=== PATIENT | male | born 1965 | race Caucasian/White ===

== ENCOUNTER 2017-01-11 20:38 | Inpatient (IN) | payer OTHER ==
[~2017-01-11] VITALS: Ht 177.8 cm; Wt 78.5 kg
--- NOTE | ~2017-01-11 | DS ---
PATIENT'S NAME: LEXIE AMBROSIO [facility] AGE: 51 Y [address] ROOM: [address] [address] LOCATION: [facility] [place] ADMIT DATE: 01/11/2017 Discharge Summary DISCHARGE DATE: 01/14/2017 FAMILY PHYSICIAN: Winston Troy MD ATTENDING PHYSICIAN: Raven Johnston DISCHARGE DIAGNOSES: 1. Sepsis. 2. Fever. CONSULTS DURING ADMISSION: Infectious Disease. PROCEDURE DURING ADMISSION: None. HOSPITAL COURSE: The patient was admitted for fever and sepsis and was started on broad-spectrum antibiotics. Infectious Disease was consulted and cultures were taken and are still pending. The patient was also given IV fluid hydration. Upon day of discharge, the patient had been afebrile for 24 hours and was tolerating diet and ambulating without difficulty. DISCHARGE CONDITION: Stable. DISPOSITION: Home. DISCHARGE MEDICATIONS: Please see list. DISCHARGE INSTRUCTIONS: We will contact the patient with results of cultures as they come. The patient is to return home with the minimal exertion along with Tylenol or Motrin as needed for fever and body aches and drink plenty of fluids. The patient is also to continue with doxycycline as directed. The patient is to follow up with Dr. Troy in approximately 1 week. Any concerns contact clinic prior. MD RODO AVILA/bennett /[id number] d: 01/18/17232 t: 02/02/173, DISCHARGE SUMMARY
--- NOTE | ~2017-01-11 | CON ---
PATIENT'S NAME: LEXIE MURPHY [facility] AGE: 51 Y [address] ROOM: [id number] [place], [place] [address] LOCATION: [facility] [place] ADMIT DATE: 01/11/2017 Consultation DISCHARGE DATE: FAMILY PHYSICIAN: Winston Troy MD ATTENDING PHYSICIAN: Raven Johnston DATE OF CONSULTATION: 01/12/2017 REASON FOR CONSULTATION: Acute febrile illness. HISTORY OF PRESENT ILLNESS: Mr. Murphy is a 51-year-old, male, who had started feeling poorly on Monday. Rest of the weekend, Monday and Monday he was sick with intermittent fevers, chills, malaise, myalgia; spent most of the day, Monday and Monday, in bed; decided to come in on Monday for evaluation. He was noted to be febrile without a definite source, so we admitted to the hospital. He prior to this has headache when his temperatures are all up, otherwise feels better when his temp is down. He has not had sore throat, has a little bit of cough now, not bring anything up. No chest pain. No nausea, vomiting, diarrhea, except for one episode of loose stool. No urine complaints. No specific joint complaints except for he does have pain in his mid back which he has sometimes when he has fever in the past. He lives at home with his and 3 children, as his oldest is back from college, none of them are ill. Apparently, his dog is vomiting however, and his told the nurse that the dog was sick. The patient did not know anything about that. Of note, the patient is training his dog on his [place]. They have about 3-1/2 acres [place]. They are also raising birds, [place] and pigeons, and he is working on building a coop and he does clean out the area that they are staying in now. He has not otherwise traveled anywhere. 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 PAST MEDICAL HISTORY: Significant for back pain and hypercholesterolemia. PAST SURGICAL HISTORY: He has had surgery on his back and herniorrhaphy. ALLERGIES: LISTED TO SULFA. MEDICATIONS: He is currently on, 1. Vancomycin. PATIENT'S NAME: LEXIE MURPHY [facility] AGE: 51 Y [address] ROOM: [id number] [place], [place] [address] LOCATION: [facility] [place] ADMIT DATE: 01/11/2017 Consultation DISCHARGE DATE: FAMILY PHYSICIAN: Winston Troy MD ATTENDING PHYSICIAN: Raven Johnston 2. Zosyn. 3. Doxycycline. SOCIAL HISTORY: He does not smoke. Does not drink. FAMILY HISTORY: Noncontributory. REVIEW OF SYSTEMS: All remaining review of systems is otherwise negative with pertinent positives and negatives in the HPI. PHYSICAL EXAMINATION: GENERAL: He does not look acutely ill now. He is awake, alert, oriented x3. No evidence of confusion. No neck stiffness. VITAL SIGNS: His T-max here has been 103, currently is 99.3, blood pressure 130/79, pulse 82, respirations 16. HEENT: Without icterus or thrush. NECK: Supple. LUNGS: Clear. HEART: Regular. ABDOMEN: Soft and nontender without organomegaly or tenderness. EXTREMITIES: Without cyanosis, clubbing, edema. JOINT: Without any active synovitis. SKIN: Without rash. LABORATORY AND X-RAY DATA: Creatinine is 0.9. Liver function tests are normal. His CRP is 15.9, white count 4.9, hemoglobin 12.9, platelet count 146 that is slightly down. He has 21% bands on differential last night, and only 5% lymphocytes. Sedimentation rate is 36. His respiratory pathogen screen was negative. Procalcitonin 0.67. Chest x-ray is clear. MRI of the back looked clear but he did have a little bit of fluid in the left chest and maybe some atelectasis versus infiltrate. Sinus scan showed what look like chronic sinus disease. ASSESSMENT/PLAN: Acute febrile illness with malaise, myalgias, headache when temps are up, some cough now but not overly significant. Etiology of this is uncertain. Nobody is ill at home, but the dog apparently is sick according to his . He has been training the dog and raising birds, building a chicken coop, and cleaning out the current living situation. Thus agree this psittacosis would be a possibility but so would Cryptococcus and histoplasmosis, so we will check for those. He has also been out training, so a tick exposure could be possible. There are reports of [place] spotted fever in [facility] this PATIENT'S NAME: DAILY, LEXIE Calle [facility] AGE: 51 Y [address] ROOM: [id number] [place], [place] [address] LOCATION: [facility] [place] ADMIT DATE: 01/11/2017 Consultation DISCHARGE DATE: FAMILY PHYSICIAN: Winston Troy MD ATTENDING PHYSICIAN: Raven Johnston year, so that is possibility, as would be ehrlichiosis especially if the dog is ill too, so we will check for those. We will stop the vancomycin and Zosyn. Continue the doxycycline. Put him on ceftriaxone 2 g IV daily in case this is a community-acquired pneumonia that has not really masked itself yet. We will consider repeating a chest x-ray. We will follow up these results and see how he does. Typically, if it is rickettsial illness within about 48 hours, he will see significant improvement. Please call with questions or as results come back and we can assist from a far. Thanks for asking me to see the patient. MD CAITLIN HERRERA/harleenl /[id number] d: 01/12/172017 t: 02/08/17 1833, CONSULTATION REPORT
--- NOTE | ~2017-01-11 | ER ---
PATIENT'S NAME: LEXIE AMBROSIO [facility] AGE: 51 Y [address] ROOM: [place] [address] [place] [facility] [place] DATE: 01/11/2017 ER/Outpatient Report DISCHARGE DATE: FAMILY PHYSICIAN: Winston Troy MD ATTENDING PHYSICIAN: Raven Johnston Admission date and time documented in the medical record. I saw the patient at 2100 hours. CHIEF COMPLAINT: Fever, shaking chills, rigors, generalized malaise, myalgias, and arthralgias. HISTORY OF PRESENT ILLNESS: This patient is a 51-year-old male, who has been sick for about 4 or 5 days, who has been in bed over the last 3 days, has intermittent fevers up to 103.3 at the highest. He has had the shaking rigors. When he takes Tylenol or ibuprofen, it brings fever down and pops right back up. Little lightheaded and dizzy, but no syncope or near syncope. No fall or trauma. Mild headache intermittently. No eyes, ears, nose, throat, neck, or spine pain. No chest pain, shortness of breath, or cough. No abdominal pain, nausea, or vomiting. One episode of diarrhea today. No blood in the stool. No urinary frequency, urgency, or dysuria. No joint or muscle swelling, redness, or pain. No skin eruptions or rash. No history of neuro changes, psych issues, or endocrine problems. HOME MEDICATIONS: See attached medication list. ALLERGIES: SULFA. SOCIAL HISTORY: Nonsmoker and nondrinker. SIGNIFICANT PAST MEDICAL HISTORY: Elevated cholesterol and chronic back pain. OPERATIONS: Back surgery and herniorrhaphy. REVIEW OF SYSTEMS: All systems reviewed by me are negative with the exception of those discussed in the history of present illness. PHYSICAL EXAMINATION: PATIENT'S NAME: LEXIE AMBROSIO [facility] AGE: 51 Y [address] ROOM: [place] [id number] [place] [facility] [place]: 01/11/2017 ER/Outpatient Report DISCHARGE DATE: FAMILY PHYSICIAN: Winston Troy MD ATTENDING PHYSICIAN: Raven Johnston VITAL SIGNS: Temperature 98.4 tympanic, pulse 91, respirations 14, O2 saturation on room air is 94%, and blood pressure 130/85. HEAD: Normocephalic. No abrasion, contusion, laceration, or swelling to the scalp or face. EYES: Extraocular muscles intact. PERRL. Sclerae and conjunctivae clear. Nonicteric. EARS: Clear TMs bilaterally. NOSE: Clear. THROAT: Clear mucous membranes, little dry. NECK: No nuchal rigidity. No findings of adenopathy. LUNGS: Clear. No rales, rhonchi, or wheezes. HEART: Regular. Pulses are palpable. ABDOMEN: Soft, nondistended, and nontender. Good bowel tones. No organomegaly or abnormal masses palpable. EXTREMITIES: Intact. NEUROVASCULAR: Intact. SKIN: Clear. No skin eruptions or rash. LABORATORY DATA AND X-RAYS: Chest x-ray showed no acute infiltrate or changes. We will review x-ray with the radiologist. Urine shows 0 to 2 whites, 5 to 10 reds, 2 to 5 epithelial cells, rare bacteria, 1+ mucus per high-powered field. Culture pending. Two blood cultures drawn, results pending. Venous pH was 7.43. Lactate was normal at 1.2. Procalcitonin was elevated at 0.67. CRP was elevated at 18. ProBNP was 132. CMS was normal except an elevated glucose of 123 and low calcium of 8.1. Point of care cardiac enzymes were normal. CPK was 78. White count 7100, 71 segs, 21 bands, 5 lymphs, 4 monos, hemoglobin is 15.3, hematocrit 42.6, and platelet count was 158,000. Pro-time is 10.7 with an INR of 1.02. EMERGENCY DEPARTMENT COURSE: I did give the patient 2 L of normal saline IV here in the emergency room, then ran at 150 mL an hour. IMPRESSION: Febrile illness, etiology uncertain. The patient does have blood cultures and urine cultures obtained, results pending. The patient has had a temperature up to 103.3 with generalized malaise, myalgias, and arthralgias. He had a normal white count with a bandemia of 21%. His procalcitonin was elevated at 0.67. He has normal lactate. He has an elevated CRP of 18.0. Accompanied his fever is shaking rigors. Need to be concerned about sepsis. Wait and see what the cultures grow out. PLAN: Discussed this patient with Dr. Johnston for Dr. Winston Troy. Will admit to [facility] PATIENT'S NAME: S, LEXIE Calle [facility] AGE: 51 Y [address] ROOM: [address] [address] [place] [facility] [place] DATE: 01/11/2017 ER/Outpatient Report DISCHARGE DATE: FAMILY PHYSICIAN: Winston Troy MD ATTENDING PHYSICIAN: Raven Johnston telemetry for further evaluation and treatment. Discussion ensued with the patient and his concerning my findings and recommendations, they understand. MD CHRISTEL ANN/harleenl /[id number] d: 01/12/17 0506 t: 01/12/17 1809, OUTPATIENT REPORT
--- NOTE | ~2017-01-11 | HP ---
PATIENT'S NAME: LEXIE AMBROSIO [facility] AGE: 51 Y [address] ROOM: [place] [address] LOCATION: [facility] [place] ADMIT DATE: 01/11/2017 History & Physical DISCHARGE DATE: FAMILY PHYSICIAN: Winston Troy MD ATTENDING PHYSICIAN: Michelle Johnston DATE OF SERVICE: CHIEF COMPLAINT: Fevers. HISTORY OF PRESENT ILLNESS: Lexie is a 51-year-old, otherwise healthy gentleman who has had fevers and shaking chills for the last 5 days. His temperature has been up to 103. It does respond to ibuprofen and Tylenol temporarily and he feels better and then the fever goes back up again. He is extremely exhausted and has not been able to get much more down than being in bed. He denies sore throat, cough, vomiting, diarrhea, urinary symptoms, or rash. He denies any tick or mosquito bites. He denies any travel and no one else at home has been ill. The only thing new or different is that he has been caring for some pigeons as he is trying to train his hunting dogs. He is otherwise very healthy. His appetite has been very poor. He has had very small amounts of solid food in the last 4 days as well. He has chronic sinus congestion and drainage. He only has a headache when he has a fever. No confusion. No neck pain. No sore throat. No swollen glands. No rashes, just a very slight cough and minimal nausea. He also has severe muscle aches. PAST MEDICAL HISTORY: Operations include back surgery x2. Illnesses include chronic back pain and hyperlipidemia. MEDICATIONS: His current medications, 1. Pravastatin 40 mg daily. 2. Tramadol ER 200 mg at bedtime. ALLERGIES: SULFA. FAMILY HISTORY: Unremarkable. SOCIAL HISTORY: He is . He just took new job at the [employer] in [facility]. He is PATIENT'S NAME: LEXIE AMBROSIO [facility] AGE: 51 Y [address] ROOM: [place] [address] LOCATION: [facility] [place] ADMIT DATE: 01/11/2017 History & Physical DISCHARGE DATE: FAMILY PHYSICIAN: Winston Troy MD ATTENDING PHYSICIAN: Michelle Johnston very active and likes everything outdoors. He and his 16-year-old son are training some hunting dogs. His 21-year-old son is planning to go to medical school, 18-year-old daughter just starting college. He is . Nonsmoker and social alcohol use. No history of illicit drugs. REVIEW OF SYSTEMS: GENERAL: Fatigue, fevers, chills, and night sweats. No weight loss that is appreciated. ENT: He has chronic sinus drainage. He was treated for sinusitis about 3 months ago. No sore throat or pain with swallowing. No swollen glands. CARDIOVASCULAR: He denies any chest pain, shortness of breath, or pleuritic discomfort. RESPIRATORY: Just a very slight cough, otherwise no respiratory complaints. No wheezing or shortness of breath. GI: No nausea. Decreased appetite. He had one loose stool. Otherwise no GI problems. : Negative. No dysuria and no blood in the urine. MUSCULOSKELETAL: He has chronic low back pain ever since he had back surgery. He also has mid thoracic back discomfort which has been much worse since he has had the fevers. NEUROLOGIC: He denies any confusion and no history of seizures. He does have chronic right leg weakness ever since his back surgery. He had been on Lyrica without any relief from that and the tramadol helps him at night so he can sleep. PSYCHIATRIC: Negative. DERMATOLOGIC: Negative. PHYSICAL EXAMINATION: GENERAL: Lexie is a well-developed, well-nourished, 51-year-old gentleman. He is alert, cooperative, in no acute distress. He gives an excellent history. No evidence of any confusion whatsoever. VITAL SIGNS: His temperature in the ER is 98.4, but it did spike to 103 up in the floor. Height 5 feet 10 inches, weight 75.2 kg. Blood pressure 130/85, pulse 91, respirations 14, and O2 saturation 94% on room air. HEENT: Pupils are equal and reactive. Extraocular muscles intact. Sclerae are clear. Oropharynx is within normal limits. No evidence of any inflammation of the tonsils. NECK: Supple without adenopathy or thyromegaly or tenderness. HEART: Regular rate and rhythm without murmurs. LUNGS: Lung sounds are clear throughout. ABDOMEN: Soft. No organomegaly, masses, or tenderness. EXTREMITIES: Clear. No rash. No edema. Distal circulation is excellent. NEUROLOGIC: Alert and oriented. No focal neurologic findings other than prior known right leg weakness with right calf atrophy. PATIENT'S NAME: LEXIE AMBROSIO [facility] AGE: 51 Y [address] ROOM: [id number] [place], [place] [address] LOCATION: [facility] [place] ADMIT DATE: 01/11/2017 History & Physical DISCHARGE DATE: FAMILY PHYSICIAN: Winston Troy MD ATTENDING PHYSICIAN: Michelle Johnston LABORATORY WORK: Chemistries: Glucose 123, sodium 136, potassium 4.0, BUN 20 and creatinine 1.1. GFR greater than 60. CK, CK-MB, and troponin are all negative. White count 7.1, hemoglobin 15.3, and platelets 158,000, 71% segs, 21% bands. PT is normal. Chest x-ray is going to be very clear . ABG: PH of 7.43, pCO2 of 41, and PO2 of 40, but that was a venous specimen. Lactate is normal at 1.2. Procalcitonin was elevated at 0.67. CRP is markedly elevated at 18. ProBNP was minimally elevated at 132. UA was positive for 1+ protein and ketones, 5 to 10 red cells, 3 to 5 epithelials, and rare bacteria. Culture is pending. Blood cultures and urine culture is pending. ASSESSMENT: 1. Febrile illness of uncertain cause. 2. Hyperlipidemia. 3. Chronic low back pain with right leg weakness due to prior herniated disc. 4. Mid thoracic back pain. 5. Chronic postnasal drainage. PLAN: He is being admitted. Cultures are pending. He has been started on Zosyn and vancomycin. After some reading, we will also get antibody titers for psittacosis as he has been exposed to bird and bird feces. We will start him empirically on doxycycline to cover that. We will have Infectious Disease do a consultation. Also, plan an MRI of the thoracic spine where he has pain and a CT of the sinuses to rule out other cause of febrile illness. Prognosis is good as he is underlying quite healthy. We will follow daily labs. Did do a swab for influenza that was negative and also have West Nile antibody pending. Patient of Dr. Winston Troy and he will assume care as of tomorrow. MICHELLE MD TAMARA AZEVEDO/harleenl /[id number] D: [id number] T: [id number] HISTORY & PHYSICAL
[2017-01-11 21:31] LABS: BICARBONATE 27.2 mmol/L (18.0-23.0); LACTATE 1.2 mEq/L (0.50-1.60); PCO2 41 mmHg (35-45)
[2017-01-11 21:32] LABS: PO2 40 mmHg (80-90)
[2017-01-11 21:33] LABS: HEMATOCRIT 42.6 % (37.0-53.0); HEMOGLOBIN 15.3 g/dL (12.0-17.0); MCH 34.2 pg (27.0-34.0); MCHC 35.9 gm/dL (32.0-36.5); MCV 95.3 fl (83.0-98.0); MPV 9.4 fl (9.4-12.4); PLATELET COUNT 158 K/uL (150-450); RBC 4.47 M/uL (4.00-6.00); RDW-CV 12.4 % (11.9-14.6); WBC 7.1 K/uL (4.0-11.0)
[2017-01-11 21:41] LABS: INR - (THERAPEUTIC) 1.02 (0.92-1.07); PROTIME 10.7 SECONDS (9.8-11.4)
[2017-01-11 21:51] LABS: ALBUMIN 3.2 gm/dL (3.5-5.0); ALK PHOS 135 IU/L (33-138); ALT 52 IU/L (12-78); AST 35 IU/L (10-40); BLOOD UREA NITROGEN 20 mg/dL (6-24); CALCIUM 8.1 mg/dL (8.5-10.5); CHLORIDE 103 mMol/L (96-110); CO2 24 mMol/L (22-32); CPK 78 IU/L (35-332); CREATININE 1.1 mg/dL (0.6-1.3); ESTIMATED GFR (MDRD EQUATION) > 60; SODIUM 136 mMol/L (135-145); TOTAL BILIRUBIN 0.8 mg/dL (0.0-1.5); TOTAL PROTEIN 6.5 g/dL (6.0-8.4)
[2017-01-11 22:38] LABS: BILIRUBIN URINE NEGATIVE (NEGATIVE); BLOOD URINE 150 /UL (NEGATIVE); COLOR URINE YELLOW (YELLOW); GLUCOSE URINE NEGATIVE (NEGATIVE); KETONE URINE 150 mg/dL (NEGATIVE); LEUKOCYTES URINE 25 /UL (NEGATIVE); NITRITE URINE NEGATIVE (NEGATIVE); PROTEIN URINE 30 mg/dL (NEGATIVE); SPEC GRAVITY URINE 1.015 (1.003-1.035); TURBIDITY URINE CLEAR (CLEAR); UROBILINOGEN URINE 4 mg/dL (NORMAL)
[2017-01-11 22:45] LABS: ABSOLUTE NEUTROPHIL CT (ANC) 6.5 K/uL (1.4-9.0); BANDED NEUTROPHIL # 1.5 K/uL (0.0-0.1); BANDED NEUTROPHILS % 21 %; LYMPHOCYTE # 0.4 K/uL (0.8-4.0); LYMPHOCYTE % 5 %; MONOCYTE # 0.3 K/uL (0.0-1.0); SEGMENTED NEUTROPHIL % 71 %
[2017-01-11 22:55] LABS: BACTERIA URINE RARE (NEGATIVE); MUCUS URINE 1+ (NEGATIVE); WBC URINE 0-2 #/HPF (NEGATIVE)
[2017-01-12] MEDS ORDERED: PRAVACHOL40 MG PO (01:08)
[2017-01-12] MEDS ORDERED: TRAMADOL HCL E200 MG PO (01:11)
[2017-01-12 05:26] LABS: HEMATOCRIT 37.2 % (37.0-53.0); HEMOGLOBIN 12.9 g/dL (12.0-17.0); MCH 32.7 pg (27.0-34.0); MCHC 34.7 gm/dL (32.0-36.5); MCV 94.4 fl (83.0-98.0); MPV 9.3 fl (9.4-12.4); PLATELET COUNT 146 K/uL (150-450); RBC 3.94 M/uL (4.00-6.00); RDW-CV 12.5 % (11.9-14.6); WBC 4.9 K/uL (4.0-11.0)
[2017-01-12 05:39] LABS: ANION GAP 10.5 (10.0-19.0); BLOOD UREA NITROGEN 15 mg/dL (6-24); CHLORIDE 109 mMol/L (96-110); CO2 22 mMol/L (22-32); CREATININE 0.9 mg/dL (0.6-1.3); ESTIMATED GFR (MDRD EQUATION) > 60; POTASSIUM 3.5 mMol/L (3.7-5.1); SODIUM 138 mMol/L (135-145)
[2017-01-12 05:41] LABS: CALCIUM 7.2 mg/dL (8.5-10.5)
[2017-01-12 06:31] LABS: ABSOLUTE NEUTROPHIL CT (ANC) 4.4 K/uL (1.4-9.0); LYMPHOCYTE # 0.2 K/uL (0.8-4.0); LYMPHOCYTE % 5 %; MONOCYTE # 0.3 K/uL (0.0-1.0); SEGMENTED NEUTROPHIL # 4.4 K/uL (1.4-9.0); SEGMENTED NEUTROPHIL % 89 %
[2017-01-13 05:11] LABS: BASOPHIL % 0.2 %; EOSINOPHIL % 0.2 %; HEMATOCRIT 35.9 % (37.0-53.0); HEMOGLOBIN 12.6 g/dL (12.0-17.0); IMMATURE GRANULOCYTE % 0.6 %; LYMPHOCYTE # 0.5 K/uL (0.8-4.0); LYMPHOCYTE % 10.8 %; MCH 33.6 pg (27.0-34.0); MCHC 35.1 gm/dL (32.0-36.5); MCV 95.7 fl (83.0-98.0); MONOCYTE # 0.2 K/uL (0.0-1.0); MONOCYTE % 4.5 %; MPV 9.6 fl (9.4-12.4); NEUTROPHIL # (ANC) 3.9 K/uL (1.4-9.0); NEUTROPHIL % 83.7 %; NRBC % 0 /100WBC (0-0.00); PLATELET COUNT 137 K/uL (150-450); RBC 3.75 M/uL (4.00-6.00); RDW-CV 12.7 % (11.9-14.6); WBC 4.6 K/uL (4.0-11.0)
[2017-01-13 05:26] LABS: ANION GAP 8.7 (10.0-19.0); BLOOD UREA NITROGEN 11 mg/dL (6-24); CALCIUM 7.5 mg/dL (8.5-10.5); CHLORIDE 112 mMol/L (96-110); CO2 26 mMol/L (22-32); CREATININE 0.8 mg/dL (0.6-1.3); ESTIMATED GFR (MDRD EQUATION) > 60; POTASSIUM 3.7 mMol/L (3.7-5.1); SODIUM 143 mMol/L (135-145)
[2017-01-14] MEDS ORDERED: ACETAMINOPHEN500 M1 PO (11:38)
[2017-01-14] MEDS ORDERED: DOXYCYCLINE100 MG PO (11:39)
[2017-01-14] MEDS ORDERED: IBUPROFEN400 MG PO (11:42)
== END 2017-01-14 12:22 | disposition disaster alternative care site (69) | DRG 872 ==
LOC: GMED 20:38 → GMSU 23:49
PROVIDERS: Emergency Medicine; ADMIT Family Medicine
DX: A41.9 Sepsis, unspecified organism (principal); E78.5 Hyperlipidemia, unspecified; Z88.2 Allergy status to sulfonamides; M51.27 Other intervertebral disc displacement, lumbosacral region; R09.82 Postnasal drip
CPT/HCPCS: J0696; J2543; J3370; J7030; J7040; J7050

== ENCOUNTER → 2017-02-17 | Outpatient (CLI) | payer OTHER ==
[~2017-02-17] MED LIST: ACETAMINOPHEN500 M1 PO; DOXYCYCLINE100 MG PO; IBUPROFEN400 MG PO; PRAVACHOL40 MG PO; TRAMADOL HCL E200 MG PO
== END | disposition disaster alternative care site (69) ==
LOC: GRAD 02-15 07:56
DX: R94.5 Abnormal results of liver function studies (principal)